=== PATIENT | male | born 1955 | race Caucasian/White ===

== ENCOUNTER 2020-12-15 10:49 | Outpatient (CLI) | payer MEDICARE, SELFPAY ==
--- NOTE | ~2020-12-15 | XR_ITS ---
EXAMINATION: XR lumbar spine 6V w bending DATE: 12/15/2020 11:19 INDICATION: Lumbar radiculopathy TECHNIQUE: Anteroposterior, lateral in neutral, flexion and extension, and bilateral oblique views of the lumbar spine, and cone-down lateral view of the lumbosacral junction were obtained. COMPARISON: 03/22/2008 FINDINGS: There is been interval revision of the lumbar posterior fusion which now extends from L4 th rough S1. An interbody device is present at L5-S1. There are 5 mm of retrolisthesis of T12 on L1 and L1 on L2. No laxity is present with flexion or extension. The vertebral body heights are maintained. There is severe loss of intervertebral disc space height at L1-2 and moderate loss of disc space heig ht at L2-3 through L4-5. There is no fracture. Moderate facet osteoarthritis is noted. IMPRESSION: 1. Moderate lumbar spondylosis without acute findings or significant interval change. Reviewed, dictated and finalized at location A.
--- NOTE | ~2020-12-15 | MR_ITS ---
EXAMINATION: MR brain/brain stem wo con DATE: 12/15/2020 12:17 INDICATION: Dementia TECHNIQUE: Magnetic resonance imaging (MRI) of the brain and brainstem was performed without intraven ous contrast. Sequences included sagittal and axial T1-weighted SE, axial diffusion-weighted FS SE, a xial T2*-weighted GRE, axial T2-weighted FLAIR Propeller, and axial T2-weighted Propeller. Apparent d iffusion coefficient (ADC) maps were created. COMPARISON: MRA brain dated 09/23/2011. FINDINGS: Normal brain parenchymal volume for age. Normal skinner-white differentiation. No evidence for acute intracranial infarction, hemorrhage, mass or mass effect. Orbits are symmetric without disconj ugate gaze. No ventriculomegaly or midline shift. Paranasal sinuses are unremarkable. Structures of t he posterior fossa including 7/8th cranial nerve complexes are normal. IMPRESSION: 1. Normal MRI of the brain for age. Reviewed, dictated and finalized at location B.
== END 2020-12-15 10:50 | disposition home or self-care (01) ==
LOC: ANHIMG 11:01
PROVIDERS: PCP Family Medicine; Visit Provider Psychiatry & Neurology Neurology
DX: F03.90 Unspecified dementia, unspecified severity, without behavioral disturbance, psychotic disturbance, mood disturbance, and anxiety (principal); M47.26 Other spondylosis with radiculopathy, lumbar region
CPT/HCPCS: 70551; 72114

== ENCOUNTER 2021-02-05 09:03 | Outpatient (CLI) | payer MEDICARE, SELFPAY ==
--- NOTE | 2021-02-05 11:00 | NEURO_ITS ---
Impression: # Complains of numbness of feet. # Normal nerve conduction study. # No Tarsal Tunnel Syndrome. # Normal needle/EMG exam. # Clinical correlation recommended. Nerve Conduction Studies Anti Sensory Summary Table Stim Site NR Peak (ms) P-T Amp (?V) Site1 Site2 Delta-P (ms) Dist (cm) Tonio (m/s) Left Sup Fibular Anti Sensory (Ant Lat Mall) 14 cm 3.6 10.5 14 cm Ant Lat Mall 3.6 16.0 44 Right Sup Fibular Anti Sensory (Ant Lat Mall) 14 cm 3.5 5.6 14 cm Ant Lat Mall 3.5 16.0 46 Left Sural Anti Sensory (Lat Mall) Calf 4.0 47.5 Calf Lat Mall 4.0 16.0 40 Right Sural Anti Sensory (Lat Mall) Calf 3.3 9.7 Calf Lat Mall 3.3 16.0 48 Motor Summary Table Stim Site NR Onset (ms) O-P Amp (mV) Site1 Site2 Delta-0 (ms) Dist (cm) Tonio (m/s) Left Lateral Plantar Motor (ADM) Med Mall 5.2 0.4 Right Lateral Plantar Motor (ADM) Med Mall 4.9 0.5 Left Peroneal Motor (Vastus Med) Ankle 4.8 4.0 Popit Ankle 10.2 44.0 43 Popit 15.0 2.9 Right Peroneal Motor (Vastus Med) Ankle 4.9 3.7 Popit Ankle 9.2 39.0 42 Popit 14.1 3.4 Left Tibial Motor Run #1 (Abd Alcantar Brev) Ankle 6.3 4.9 Knee Ankle 10.2 44.0 43 Knee 16.5 3.9 Right Tibial Motor (Abd Alcantar Brev) Ankle 4.8 8.4 Knee Ankle 10.4 46.0 44 Knee 15.2 3.8 F Wave Studies NR F-Lat (ms) L-R F-Lat (ms) Left Peroneal (Mrkrs) (EDB) 56.25 0.55 Right Peroneal (Mrkrs) (EDB) 55.70 0.55 Left Tibial (Mrkrs) (Abd Hallucis) 57.31 0.55 Right Tibial (Mrkrs) (Abd Hallucis) 56.76 0.55 EMG Side Muscle Nerve Root Ins Act Fibs Amp Dur Recrt Comment Right AntTibialis Dp Br Fibular L4-5 Nml Nml Nml Nml Nml Right Gastroc Tibial S1-2 Nml Nml Nml Nml Nml Right Fibularis Long Sup Br Fibular L5-S1 Nml Nml Nml Nml Nml Right Flex Dig Long Tibial L5-S2 Nml Nml Nml Nml Nml Right Ext Dig Brev Dp Br Fibular L5, S1 Nml Nml Nml Nml Nml Left AntTibialis Dp Br Fibular L4-5 Nml Nml Nml Nml Nml Left Gastroc Tibial S1-2 Nml Nml Nml Nml Nml Left Fibularis Long Sup Br Fibular L5-S1 Nml Nml Nml Nml Nml Left Flex Dig Long Tibial L5-S2 Nml Nml Nml Nml Nml Left Ext Dig Brev Dp Br Fibular L5, S1 Nml Nml Nml Nml Nml Right QuadratusFem QuadFemoris L4-5, S1 Nml Nml Nml Nml Nml Left QuadratusFem QuadFemoris L4-5, S1 Nml Nml Nml Nml Nml MTDD
== END 2021-02-05 09:04 | disposition home or self-care (01) ==
PROVIDERS: PCP Family Medicine; Visit Provider Psychiatry & Neurology Neurology
DX: M54.16 Radiculopathy, lumbar region (principal)
CPT/HCPCS: 95886; 95911

== ENCOUNTER 2021-04-09 10:36 | Outpatient (CLI) | payer MEDICARE, SELFPAY ==
--- NOTE | ~2021-04-09 | XR_ITS ---
XR foot RT min 3V DATE: 04/09/2021 10:54 INDICATION: Lateral right foot pain for 2 months TECHNIQUE: 4 views COMPARISON: None FINDINGS: No fracture or dislocation, periosteal reaction or bone destruction. IMPRESSION: No significant abnormality Reviewed, dictated and finalized at location B. IMPRESSION: No significant abnormality
== END 2021-04-09 10:37 | disposition home or self-care (01) ==
LOC: ANHIMG 10:39
PROVIDERS: PCP Family Medicine; Visit Provider Family Medicine
DX: M79.671 Pain in right foot (principal)
CPT/HCPCS: 73630

== ENCOUNTER → 2021-07-21 12:12 | Outpatient (CLI) | payer MEDICARE, SELFPAY ==
--- NOTE | ~2021-07-21 | MR_ITS ---
EXAMINATION: MR lumbar spine wo con DATE: 07/21/2021 12:53 INDICATION: Lumbar spine stenosis with neurogenic claudication. Low back pain. TECHNIQUE: Magnetic resonance imaging (MRI) of the lumbar spine was performed without intravenous con trast. Sequences included sagittal T2-weighted FSE, sagittal STIR FSE, sagittal T1-weighted FSE, and axial T2-weighted FSE. COMPARISON: Lumbar spine MRI 08/05/2008 FINDINGS: There is 3 mm retrolisthesis of T12 on L1, 5 mm retrolisthesis of L1 on L2, 6 mm retrolisth esis of L2 on L3 and 4 mm anterolisthesis of L4 on L5. There are changes of anterior fusion procedure at L5-S1 with interbody device. There are changes of posterior fusion procedure from L4 to S1 with p edicle screws. There is mild chronic anterior wedging of T12 and L1 vertebral bodies. There is modera tely decreased disc height at T12-L1, severely decreased disc height at L1-L2, moderately decreased d isc height at L2-L3, and mildly decreased disc height at L4-L5. The distal spinal cord signal intensi ty is normal. The conus medullaris is at L1. The following disc levels are specifically discussed: L1-L2: The disc is bulging and has an annular fissure. There is moderate bilateral facet joint osteoa rthritis. There is moderate bilateral neural foraminal stenosis. There is mild central canal stenosis . L2-L3: The disc is bulging and has an annular fissure. There is severe bilateral facet joint osteoart hritis. There is moderate bilateral neural foraminal stenosis. There is mild central canal stenosis. L3-L4: The disc is bulging. There is severe bilateral facet joint osteoarthritis. There is mild bilat eral neural foraminal stenosis. There is mild central canal stenosis. L4-L5: The disc does not extend beyond the endplate margin. There is severe bilateral facet joint hyp ertrophy. There is mild bilateral neural foraminal stenosis. There is no central canal stenosis. L5-S1: There is moderate right and mild left facet joint hypertrophy. There is mild right neural fora corrie stenosis. There is no central canal stenosis. IMPRESSION: 1. Severe lumbar spondylosis, worsened from 08/05/2008. 2. Anterior fusion procedure at L5-S1 and posterior fusion procedure from L4 to S1. Reviewed, dictated and finalized at location A. [employer]
== END ==
PROVIDERS: PCP Family Medicine; Visit Provider Family Medicine
DX: M48.061 Spinal stenosis, lumbar region without neurogenic claudication (principal); M47.896 Other spondylosis, lumbar region; Z98.1 Arthrodesis status
CPT/HCPCS: 72148

== ENCOUNTER 2022-01-14 11:16 | Outpatient (CLI) | payer MEDICARE, SELFPAY ==
--- NOTE | ~2022-01-14 | US_ITS ---
EXAMINATION: US carotid duplex BI DATE: 01/14/2022 11:46 INDICATION: Visual disturbance TECHNIQUE: Grayscale, color Doppler, and pulsed Doppler images of the cervical carotid arteries were obtained. The degree of vessel stenosis is placed in one of the following categories: normal, <50%, 5 0-69%, >=70% but less than near-occlusion, near-occlusion, or total occlusion. Note that percent sten osis relative to normal distal artery lumen diameter is indirectly measured from velocity measurement s as described by Wayne, et al. Radiology 2003; 229:340-346. Notes: Normal: Peak systolic velocity <125 centimeters/sec and no plaque <50%. Peak systolic velocity <125 ( EDV <40; ICA/CCA PSV ratio <2.0; used these factors only a tandem lesions or low cardiac output or co ntralateral disease) 50-69 %: PSV 125-230 (EDV 40-100; ratio 2-4) >= 70% but less than near occlusion: PSV greater than 230 (EDV > 100; ratio> 4.0) Near Occlusion: PSV that is variable; markedly narrowed lumen Occlusion: Absent flow on color/spectral Doppler and no lumen on skinner scale. COMPARISON: None. FINDINGS: RIGHT: The right common carotid artery (CCA) peak systolic velocity (PSV) is 105 cm/s. The right internal ca rotid artery (ICA) PSV is 53 cm/s. The right ICA end-diastolic velocity (EDV) is 16 cm/s. The right I CA/CCA PSV ratio is 0.5. The external carotid artery (ECA) PSV is 84 cm/s. There is antegrade flow in the right vertebral artery. LEFT: The left CCA PSV is 70 cm/s. The left ICA PSV is 56 cm/s. The left ICA EDV is 21 cm/s. The left ICA/C CA PSV ratio is 0.8. The ECA PSV is 80 cm/s. There is antegrade flow in the left vertebral artery. IMPRESSION: 1. Less than 50% stenosis in the right internal carotid artery by sonographic criteria. 2. Less than 50% stenosis in the left internal carotid artery by sonographic criteria. Reviewed, dictated and finalized at location A. IMPRESSION: 1. Less than 50% stenosis in the right internal carotid artery by sonographic sherrie castro. 2. Less than 50% stenosis in the left internal carotid artery by sonographic alexandro mendiola.
== END 2022-01-14 11:17 | disposition home or self-care (01) ==
PROVIDERS: PCP Family Medicine; Visit Provider Family Medicine
DX: H53.9 Unspecified visual disturbance (principal); E78.00 Pure hypercholesterolemia, unspecified; I65.23 Occlusion and stenosis of bilateral carotid arteries
CPT/HCPCS: 93880

== ENCOUNTER 2022-02-01 13:01 | Outpatient (CLI) | payer MEDICARE, SELFPAY | END 2022-02-01 13:02 | disposition home or self-care (01) | LOC: ANHAUDASC 13:03 | PROVIDERS: PCP Family Medicine; Visit Provider Family Medicine | DX: H90.3 Sensorineural hearing loss, bilateral (principal) | CPT/HCPCS: 92557; 92567 ==

== ENCOUNTER 2022-02-10 11:02 | Outpatient (CLI) | payer MEDICARE, SELFPAY ==
--- NOTE | ~2022-02-10 | US_ITS ---
US abdomen limited INDICATION: Abdominal pain PROCEDURE: Realtime right upper abdominal ultrasound. COMPARISON: No prior studies for comparison. FINDINGS: The pancreas is normal without focal mass or pancreatic ductal dilation. Liver echotexture is normal without focal mass or intrahepatic biliary dilatation. There is normal directional flow i n the portal vein. Portal vein is mildly distended measuring 13 mm. The gallbladder is normal without stones, gallbladder wall thickening or pericholecystic fluid. Comm on bile duct measures mm. No sonographic Dao's sign. IMPRESSION: 1: Unremarkable limited abdominal ultrasound. Reviewed, dictated and finalized at location B.
[2022-02-10 12:06] LABS: Basophils Percent Auto 0.4 % (0.2-1.2); Eosinophils Absolute Auto 0.1 K/mm3 (0-0.3); Eosinophils Percent Auto 1.5 % (0-4.4); Hematocrit 43.8 % (42.0-52.0); Hemoglobin 14.2 g/dL (14.0-18.0); Immature Granulocyte Absolute 0.02 K/mm3 (0.00-0.031); Immature Granulocyte Percent A 0.4 % (0-0.5); Lymphocytes Absolute Auto 1.38 K/mm3 (0.9-3.2); Lymphocytes Percent Auto 25.4 % (18.3-44.2); Mean Corpuscular HGB Conc 32.4 g/dl (32-36); Mean Corpuscular Hemoglobin 30.8 pg (26-34); Mean Platelet Volume 12.6 fl (7.4-10.4); Monocytes Absolute Auto 0.6 K/mm3 (0.1-0.6); Monocytes Percent Auto 11.2 % (2.6-8.5); Neutrophils Absolute Auto 3.3 K/mm3 (1.3-6.7); Neutrophils Percent Auto 61.1 % (45.5-73.1); Platelet Count Result 161 k/mm3 (150-375); Red Blood Count 4.61 M/mm3 (4.6-6.20); Red Cell Distribution Width 12.5 % (11.5-14.5); White Blood Count 5.4 K/mm3 (4.5-10.0)
[2022-02-10 12:19] LABS: Alanine Aminotransferase 26 U/L (6-50); Albumin Level 4.4 g/dL (3.5-5.1); Alkaline Phosphatase 86 U/L (38-126); Amylase 86 U/L (30-110); Anion Gap 5 mmol/L (8-16); Aspartate Amino Transferase 33 U/L (17-59); Bilirubin,Total 0.6 mg/dL (0.2-1.3); Blood Urea Nitrogen 10 mg/dL (9-20); Calcium 9.3 mg/dL (8.4-10.2); Carbon Dioxide 32 mmol/L (22-30); Chloride 99 mmol/L (98-107); Estimated Glomerular Filt Rate > 60; Glucose 93 mg/dL (65-110); Lipase 55 U/L (23-300); Potassium 4.2 mmol/L (3.4-5.0); Sodium 136 mmol/L (137-145)
== END 2022-02-10 11:03 | disposition home or self-care (01) ==
LOC: ANHIMG 11:13
PROVIDERS: PCP Family Medicine; Visit Provider Nurse Practitioner Family
DX: R10.9 Unspecified abdominal pain (principal); R14.0 Abdominal distension (gaseous)
CPT/HCPCS: 36415; 76705; 80053; 82150; 83690; 85025

== ENCOUNTER 2022-04-13 11:55 | Outpatient (CLI) | payer MEDICARE, SELFPAY ==
--- NOTE | ~2022-04-13 | NM_ITS ---
EXAMINATION: NM hepatobiliary wo pharm DATE: 04/14/2022 10:06 INDICATION: Abdominal pain. COMPARISON: None. TECHNIQUE: 3.9 mCi Tc-99m mebrofenin (Choletec) was administered intravenously. Scintigraphic images of the abdomen were obtained for one hour. Then, the patient drank 8 oz Ensure, and imaging was cont inued for 60 minutes. FINDINGS: There is normal clearance of radiotracer from the blood pool. There is homogeneous tracer u ptake by the liver. Activity progresses to the bowel and gallbladder. Gallbladder ejection fraction (GBEF) was 57%. Note that with this technique, normal GBEF >= 33%. IMPRESSION: 1. Normal hepatobiliary scintigraphy. Reviewed, dictated and finalized at location B.
== END 2022-04-13 11:56 | disposition home or self-care (01) ==
PROVIDERS: PCP Family Medicine; Visit Provider Internal Medicine Gastroenterology
DX: R10.9 Unspecified abdominal pain (principal)
CPT/HCPCS: 78226; A9537

== ENCOUNTER 2022-04-29 01:47 | Day surgery (SDC) | payer MEDICARE, SELFPAY ==
[2022-04-15 11:49] VITALS: BMI 27.5
--- NOTE | 2022-04-28 15:49 | PM.HPGS ---
History of Present Illness History of Present Illness Consent: Risks, benefits, and alternatives have been discussed and questions answered. Patient agrees to proceed with procedure. Chief complaint: Neoplasm Screening, Dysphagia Narrative: Marcelino Pope is a 66 year old male Who was become very uncomfortable in the upper abdomen. When he eats, he has a sensation that food either is not entering or passing through the stomach. Therefore he does not completely finish a meal. His weight has been stable. He is due for colon cancer screening. Review of Systems Review of Systems: All systems reviewed & are unremarkable except as noted in HPI and below PMFSH Past Medical History Medical History Allergy to bee sting Back pain BMI 27.0-27.9,adult BMI 28.0-28.9,adult Cervical paraspinal muscle spasm Degenerative lumbar disc Depression Hearing loss High cholesterol History of skin cancer Incontinence of feces Right foot pain Screening for prostate cancer Therapeutic opioid induced constipation Visual disturbance Surgical History Surgical History History of back surgery 2008, revision 2008 History of shoulder surgery 1985 History of sinus surgery 1992 x3 Family History Family History Father Hypertension Skin cancer Mother Skin cancer Rheumatoid arthritis Sibling Lung cancer COPD (chronic obstructive pulmonary disease) Social History Social History Smoking status: Former smoker Tobacco type: cigarettes Second hand tobacco smoke exposure: No Alcohol intake: current Substance use: current Substance use type: marijuana Other substance usage details: Medical Marijuana and edible Living arrangements: with family Additional occupation/education comments: Printing Gender identity (if verbalized by the patient): Male Meds Home Medications and Allergies Home Medications Medication Instructions Recorded Confirmed Type polyethylene glycol 3350 17 gram 17 g PO DAILY 03/11/21 04/15/22 History oral powder packet (Miralax) epinephrine 0.3 mg/0.3 mL 0.3 mg (0.3 mL) IM ONCE #4 ea 10/06/21 04/15/22 Rx injection, auto-injector (EpiPen 2-Onel) atorvastatin 20 mg tablet See Rx Instructions .Route 02/05/22 04/15/22 Rx .COMPLEX #90 tabs duloxetine 30 mg capsule,delayed 30 mg PO QHS #90 caps 03/08/22 04/15/22 Rx release oxycodone 10 mg tablet 10 mg PO Q6H PRN pain (scale score 04/10/22 04/29/22 Rx 7-10) #120 tabs cetirizine 5 mg tablet 5 mg PO DAILY PRN allergies 04/15/22 04/15/22 History lisinopril 10 mg tablet 10 mg PO DAILY #30 tabs 04/15/22 04/15/22 Rx Allergies Allergy/AdvReac Type Severity Reaction Status Date / Time bee pollen Allergy Unknown Anaphylaxis Verified 04/29/22 09:51 clarithromycin Allergy Unknown Nausea Verified 04/29/22 09:51 fluoxetine Allergy Unknown nausea Verified 04/29/22 09:51 iodine Allergy Unknown Anaphalaxis Verified 04/29/22 09:51 meperidine Allergy Unknown 1 Verified 04/29/22 09:51 shellfish derived Allergy Unknown Skin Verified 04/29/22 09:51 Reaction SHELL FISH Allergy Severe Anaphylaxis Uncoded 04/29/22 09:51 SSRI CLASS ANTIDEPRESSANTS Allergy Unknown Unknown Uncoded 04/29/22 09:51 Exam Const: General: alert Orientation/consciousness: patient oriented x3 Resp: Auscultation: clear to auscultation bilaterally Cardio: Rhythm: regular rhythm GI: GI Palp: Yes Soft to palpation and No Tenderness to palpation present (GI) Neuro: General: patient oriented x3 Assessment and Plan Assessment and plan (1) Early satiety: Code(s): R68.81 - Early satiety Status: Acute Assessment and Plan: EGD with possible biopsy or dilatation or cautery. (2) Encounter for colorectal c
[2022-04-29 09:52] VITALS: BP 140/98; PULSE 62; RESP 20; TEMP 36.1; O2SAT 99
[2022-04-29] MEDS: LACTATED RINGERS 1,000 ML 150 ML IV CONT (10:08)
[2022-04-29] MEDS: BENZOCAINE (*SP) 60 ML SPRAY CAN (HURRICAINE) 1 SPRAY MUCOUS MEM (10:43)
--- NOTE | 2022-04-29 10:46 | SUR.OPER ---
EGD: [id number] COLON: [id number]
[2022-04-29 11:13] VITALS: BP 110/75; PULSE 62; RESP 20; O2SAT 97
[2022-04-29 11:23] VITALS: BP 125/81; PULSE 55; RESP 19; O2SAT 98
[2022-04-29 11:33] VITALS: BP 130/80; PULSE 56; RESP 16; O2SAT 99
== END 2022-04-29 11:44 | disposition home or self-care (01) ==
PROVIDERS: PCP Family Medicine; Visit Provider Internal Medicine Gastroenterology
PROC: 0DJ08ZZ Inspection of Upper Intestinal Tract, Via Natural or Artificial Opening Endoscopic (ICD-10-PCS; CPT 43235; principal; 2022-04-29 11:15)
DX: Z12.11 Encounter for screening for malignant neoplasm of colon (principal); D12.5 Benign neoplasm of sigmoid colon; K57.30 Diverticulosis of large intestine without perforation or abscess without bleeding; R13.10 Dysphagia, unspecified; R68.81 Early satiety; K21.9 Gastro-esophageal reflux disease without esophagitis; Z87.891 Personal history of nicotine dependence
CPT/HCPCS: 43239; 45380; 87081; 88305; J2704; J7120

== ENCOUNTER 2022-05-25 09:12 | Outpatient (CLI) | payer MEDICARE, SELFPAY ==
--- NOTE | ~2022-05-25 | NM_ITS ---
EXAM: NM gastric emptying study DATE: 05/25/2022 14:22 INDICATION: Abdominal pain and fullness. TECHNIQUE: A gastric emptying study was performed using the methodology of [place] ADAM, et al. J Nucl Med 2007; 48:568-572. The patient was given a meal consisting of 2 scrambled eggs labeled with 1.029 mCi Tc-99m sulfur colloid, 2 slices of toast, two packages of jam, and approximately 120 mL of water . Simultaneous anterior and posterior 1-min images of the abdomen were obtained with the patient supi ne at multiple time points over a total period of 4 hours. The geometric mean of anterior and posteri or views was determined, and the percentage retention was calculated for each time point. COMPARISON: None. FINDINGS: Gastric retention of the radiotracer-labeled meal was 56%, 28%, and 6% at the 1-hour, 2-ho ur, and 4-hour time points, respectively. With this technique, apparent rapid gastric emptying is sug gested by <30% gastric retention at 1 hour. Delayed gastric emptying is defined by gastric retention of >90% at 1 hour, >60% retention at 2 hours, or >10% retention at 4 hours. IMPRESSION: 1. Normal gastric emptying. Reviewed, dictated and finalized at location A. E BENDER IMPRESSION: 1. Normal gastric emptying.
== END 2022-05-25 09:13 | disposition home or self-care (01) ==
PROVIDERS: PCP Family Medicine; Visit Provider Family Medicine
DX: R68.81 Early satiety (principal); R14.0 Abdominal distension (gaseous); R10.9 Unspecified abdominal pain
CPT/HCPCS: 78264; A9541

== ENCOUNTER 2023-02-17 10:46 | Outpatient (CLI) | payer MEDICARE, SELFPAY ==
--- NOTE | ~2023-02-17 | XR_ITS ---
EXAMINATION:XR cervical spine min 6V DATE: 02/17/2023 11:11 INDICATION: Neck pain TECHNIQUE: AP, lateral in neutral, flexion, extension, lateral swimmers and odontoid views of the cer vical spine are provided. COMPARISON: None FINDINGS: There are 3 mm of retrolisthesis of C6 on C7. There is no hypermobility with flexion or ext ension. The odontoid process is intact. No fracture is identified. The vertebral body heights are rashid ntained. There is severe loss of intervertebral disc space height at C6-7 and moderate loss of interv ertebral disc space height at C5-C6. There is multilevel severe facet and uncovertebral joint osteoar thritis. Small degenerative osteophytes project from the anterior endplates of multiple vertebral bod ies. Prevertebral soft tissues are normal. IMPRESSION: 1. Severe cervical spondylosis without acute findings. Reviewed, dictated and finalized at location A.
== END 2023-02-17 10:47 | disposition home or self-care (01) ==
PROVIDERS: PCP Family Medicine; Visit Provider Family Medicine
DX: M47.22 Other spondylosis with radiculopathy, cervical region (principal)
CPT/HCPCS: 72052

== ENCOUNTER 2023-06-07 08:24 | Outpatient (CLI) | payer MEDICARE, SELFPAY ==
--- NOTE | ~2023-06-07 | MR_ITS ---
MRI of the lumbar spine Clinical History: Right lower extremity weakness Technique: Axial T2-weighted images, and sagittal T1-weighted, T2-weighted, T2 fat-sat, and STIR imag es were acquired. Following intravenous administration of 18 cc MultiHance gadolinium, T1-weighted fa t-sat imaging was performed in the axial and sagittal planes. COMPARISON: 07/21/2021 Findings: There is posterior fusion from L4 through S1, bilateral rods and transpedicular screws pres ent. There is interbody fusion across the L5-S1 disc space. There is stable grade 1 retrolistheses of L1 over L2, and of L2 over L3. There are mild reactive marrow signal changes about the L1-L2 and L2- L3 disc spaces due to underlying degenerative disc disease. At L1-L2, there is severe degenerative disc narrowing. There is mild disc bulge with moderate to tamie re facet arthropathy. No kt central canal stenosis. There is moderate to advanced left neural fora corrie narrowing, and severe right neural foraminal narrowing. At L2-L3, there is advanced degenerative disc narrowing. There is disc bulge and severe facet arthrop athy. No central canal stenosis. There is moderate to severe bilateral neural foraminal narrowing, ri ght worse than left. At L3-L4, there is minimal disc bulge with severe facet arthropathy. No kt central canal stenosis. Bilateral neural foramina are preserved. At L4-L5, there is no kt central canal stenosis. There is mild bilateral neural foraminal narrowin g. At L5-S1, there is no central canal stenosis. Right neural foramen is probably mildly narrowed. Paravertebral soft tissues are unremarkable. No abnormal/suspicious postcontrast enhancement identifi ed. Impression: Posterior fusion from L4 through S1, with interbody fusion across the L5-S1 disc space. Stable grade 1 retrolisthesis of L1 over L2, and of L2 over L3. Moderate degenerative spondylosis in the upper lumbar spine, as detailed above. Reviewed, dictated and finalized at location M. RY WRAPPER Impression: Posterior fusion from L4 through S1, with interbody fusion across the L5-S1 dis c space. Stable grade 1 retrolisthesis of L1 over L2, and of L2 over L3. Moderate degenerative spondylosis in the upper lumbar spine, as detailed above.
== END 2023-06-07 08:25 | disposition home or self-care (01) ==
PROVIDERS: PCP Family Medicine; Visit Provider Family Medicine
DX: M43.16 Spondylolisthesis, lumbar region (principal); M43.27 Fusion of spine, lumbosacral region; M47.16 Other spondylosis with myelopathy, lumbar region
CPT/HCPCS: 72158; A9577

== ENCOUNTER 2023-07-05 13:20 | Outpatient (CLI) | payer MEDICARE, SELFPAY ==
--- NOTE | 2023-07-05 14:30 | NEURO_ITS ---
Impression: # Complains of lower back pain and numbness of lower extremities. History of several back surgeries. # Normal motor Nerve Conduction Study # Absent left sural, right superficial peroneal and bilateral saphenous sensory nerve responses; . # Normal needle/EMG exam. Nerve Conduction Studies Anti Sensory Summary Table Stim Site NR Peak (ms) P-T Amp (?V) Site1 Site2 Delta-P (ms) Dist (cm) Tonio (m/s) Left Saphenous Anti Sensory (Ant Med Mall) NO RESPONSE 14cm NR 14cm Ant Med Mall 0.0 Right Saphenous Anti Sensory (Ant Med Mall) NO RESPONSE 14cm NR 14cm Ant Med Mall 0.0 Left Sup Fibular Anti Sensory (Ant Lat Mall) 14 cm 3.6 27.3 14 cm Ant Lat Mall 3.6 16.0 44 Right Sup Fibular Anti Sensory (Ant Lat Mall) NO RESPONSE 14 cm NR 14 cm Ant Lat Mall 16.0 Left Sural Anti Sensory (Lat Mall) NO RESPONSE Calf NR Calf Lat Mall 16.0 Right Sural Anti Sensory (Lat Mall) Calf 3.3 16.1 Calf Lat Mall 3.3 16.0 48 Motor Summary Table Stim Site NR Onset (ms) O-P Amp (mV) Site1 Site2 Delta-0 (ms) Dist (cm) Tonio (m/s) Left Peroneal Motor (Vastus Med) Ankle 4.5 1.1 Popit Ankle 10.0 45.0 45 Popit 14.5 1.3 Right Peroneal Motor (Vastus Med) Ankle 3.9 4.7 Popit Ankle 9.3 44.0 47 Popit 13.2 4.4 Left Tibial Motor (Abd Alcantar Brev) Ankle 4.5 3.5 Knee Ankle 9.4 45.0 48 Knee 13.9 3.1 Right Tibial Motor (Abd Alcantar Brev) Ankle 4.6 6.8 Knee Ankle 10.7 47.0 44 Knee 15.3 3.1 F Wave Studies NR F-Lat (ms) L-R F-Lat (ms) Left Peroneal (Mrkrs) (EDB) 53.80 1.81 Right Peroneal (Mrkrs) (EDB) 51.99 1.81 Left Tibial (Mrkrs) (Abd Hallucis) 52.66 0.47 Right Tibial (Mrkrs) (Abd Hallucis) 52.20 0.47 EMG Side Muscle Nerve Root Ins Act Fibs Amp Dur Recrt Comment Right AntTibialis Dp Br Fibular L4-5 Nml Nml Nml Nml Nml Right Gastroc Tibial S1-2 Nml Nml Nml Nml Nml Right Fibularis Long Sup Br Fibular L5-S1 Nml Nml Nml Nml Nml Right Flex Dig Long Tibial L5-S2 Nml Nml Nml Nml Nml Right Ext Dig Brev Dp Br Fibular L5, S1 Nml Nml Nml Nml Nml Left AntTibialis Dp Br Fibular L4-5 Nml Nml Nml Nml Nml Left Gastroc Tibial S1-2 Nml Nml Nml Nml Nml Left Fibularis Long Sup Br Fibular L5-S1 Nml Nml Nml Nml Nml Left Flex Dig Long Tibial L5-S2 Nml Nml Nml Nml Nml Left Ext Dig Brev Dp Br Fibular L5, S1 Nml Nml Nml Nml Nml Right QuadratusFem QuadFemoris L4-5, S1 Nml Nml Nml Nml Nml Left QuadratusFem QuadFemoris L4-5, S1 Nml Nml Nml Nml Nml MTDD
== END 2023-07-05 13:21 | disposition home or self-care (01) ==
LOC: ANHNEURO 13:22
PROVIDERS: PCP Family Medicine; Visit Provider Family Medicine
DX: M47.816 Spondylosis without myelopathy or radiculopathy, lumbar region (principal)
CPT/HCPCS: 95886; 95911

== ENCOUNTER 2023-11-24 09:21 | Outpatient (CLI) | payer MEDICARE, SELFPAY ==
--- NOTE | ~2023-11-24 | CT_ITS ---
EXAMINATION: CTA chest DATE: 11/24/2023 09:56 INDICATION: Stricture of artery. TECHNIQUE: Computed tomographic angiography (CTA) of the chest was performed with 100 mL Omnipaque-35 0 intravenous contrast. Automated exposure control and iterative reconstruction technique were employ ed. The dose-length product was 614.96 mGy-cm. Maximum intensity projection 3D-reconstructions of the aorta and other arteries were constructed by the technologist on a separate workstation. COMPARISON: None. FINDINGS: The lungs demonstrate mild atelectasis. There is a small pneumatocele in left upper lobe. T here is mild scarring in paraspinal right lower lobe. No pleural effusion. There is left atrial enlar gement of the heart. There are coronary artery calcifications. No pericardial effusion. There is mild aortic atherosclerosis. There is mild stenosis of celiac axis. There is no significant stenosis of s uperior mesenteric artery or the renal arteries. There is an 11 mm cyst in left kidney. There is tamie re cervical, thoracic, and lumbar spondylosis. There is mild chronic anterior wedging of multiple aron tebral bodies. IMPRESSION: 1. No significant arterial occlusive disease. Reviewed, dictated and finalized at location A.
[2023-11-24 09:45] LABS: Estimated Glomerular Filt Rate > 60
== END 2023-11-24 09:22 | disposition home or self-care (01) ==
PROVIDERS: PCP Family Medicine; Visit Provider Nurse Practitioner Adult Health
DX: I77.1 Stricture of artery (principal)
CPT/HCPCS: 71275; Q9967

== ENCOUNTER 2024-02-01 15:49 | Emergency (ER) | payer MEDICARE, SELFPAY ==
[2024-02-01] VITALS (40 sets, daily range): BP systolic 127–150; BP diastolic 88–102; PULSE 74–108; RESP 9–28; TEMP 36.4; O2SAT 96–100
--- NOTE | ~2024-02-01 | XR_ITS ---
EXAMINATION: XR chest 1V portable DATE: 02/01/2024 16:58 INDICATION: Heart palpitations. TECHNIQUE: A single frontal view of the chest was obtained. COMPARISON: Chest single view 09/28/2010, chest CT 11/24/2023 FINDINGS: There is mild atelectasis at left lung base. No pleural effusion or pneumothorax. The heart size is normal. IMPRESSION: 1. Mild atelectasis at left lung base. Reviewed, dictated and finalized at location A.
--- NOTE | 2024-02-01 15:50 | ECG_ITS ---
Test Date: 2024-02-01 15:55:32 Measurements Intervals [place] Rate: 70 P: 0 CT: 0 QRS: -20 QRSD: 119 T: 26 QT: 412 QTc: 446 Interpretive Statements ATRIAL FIBRILLATION No previous ECG available for comparison Electronically Signed On 02-01-2024 17:16:37 CDT by Aurora Acuna M.D.
[2024-02-01 17:20] LABS: Basophils Percent Auto 0.5 % (0.2-1.2); Eosinophils Absolute Auto 0.1 K/mm3 (0-0.3); Eosinophils Percent Auto 1.3 % (0-4.4); Hematocrit 42.4 % (42.0-52.0); Hemoglobin 14.3 g/dL (14.0-18.0); Immature Granulocyte Absolute 0.03 K/mm3 (0.00-0.031); Immature Granulocyte Percent A 0.5 % (0-0.5); Immature Platelet Fraction Pct 17.5 % (0.9-11.2); Lymphocytes Absolute Auto 1.11 K/mm3 (0.9-3.2); Lymphocytes Percent Auto 17.4 % (18.3-44.2); Mean Corpuscular HGB Conc 33.7 g/dl (32-36); Mean Corpuscular Hemoglobin 31.6 pg (26-34); Mean Corpuscular Volume 93.6 fl (80-100); Mean Platelet Volume 13.2 fl (7.4-10.4); Monocytes Absolute Auto 0.7 K/mm3 (0.1-0.6); Monocytes Percent Auto 11.6 % (2.6-8.5); Neutrophils Absolute Auto 4.4 K/mm3 (1.3-6.7); Neutrophils Percent Auto 68.7 % (45.5-73.1); Platelet Count Result 169 k/mm3 (150-375); Red Blood Count 4.53 M/mm3 (4.6-6.20); Red Cell Distribution Width 12.2 % (11.5-14.5); White Blood Count 6.4 K/mm3 (4.5-10.0)
--- NOTE | 2024-02-01 17:28 | ED.ARRPALP ---
HPI - Arrhythmia/Palpitations General Chief Complaint: Arrhythmia/Palpitations Stated Complaint: sent by PCP for a-fib Time Seen by Provider: 02/01/24 16:41 History of Present Illness HPI narrative: 68-year-old male present to the emergency department from the primary care physician for evaluation for acute onset of nausea. Patient does have chronic AFib since approximately mid December. On January 10 patient was at [facility] and was cardioverted. Patient does take amiodarone. Patient states shortly after being cardioverted he did return back to AFib and has been in AFib since approximately mid December. Patient was having follow-up with his primary care physician when at the office he had onset of lightheaded dizziness and nausea without vomiting. Patient was also complaining of some intermittent posterior left shoulder pain and primary care physician was concerned so he was referred to the emergency department. Upon arrival emergency department patient states that he does not have any current back pain. Patient states previously the back pain has radiated into his left neck but is not currently. Patient states that his nausea is improved and declines any medication for nausea control. Related Data Home Medications Medication Instructions Recorded Confirmed polyethylene glycol 3350 17 gram 17 g PO DAILY 03/11/21 01/11/24 oral powder packet (Miralax) cetirizine 5 mg tablet 5 mg PO DAILY PRN allergies 04/15/22 01/11/24 amoxicillin 500 mg capsule 500 mg PO Q6H 01/11/24 01/11/24 apixaban 5 mg tablet (Eliquis) 5 mg PO BID 01/18/24 spironolactone 25 mg tablet 25 mg PO DAILY 01/18/24 (Aldactone) amiodarone 400 mg tablet 200 mg PO BID 02/01/24 metoprolol succinate 50 mg 50 mg PO BID 02/01/24 tablet,extended release 24 hr Allergies Allergy/AdvReac Type Severity Reaction Status Date / Time clarithromycin Allergy Unknown Nausea Verified 02/01/24 15:50 iodine Allergy Unknown Anaphalaxis Verified 02/01/24 15:50 meperidine Allergy Unknown 1 Verified 02/01/24 15:50 shellfish derived Allergy Unknown Skin Verified 02/01/24 15:50 Reaction bee venom protein (honey bee) AdvReac Severe Anaphylactic Verified 02/01/24 15:50 Shock fluoxetine AdvReac Unknown nausea Verified 02/01/24 15:50 Review of Systems Review of Systems: All systems reviewed & are unremarkable except as noted in HPI and below PMFSH Past Medical History Medical History (Updated 02/02/24 @ 00:01 by Andrew Patton) Acute pain of left shoulder Allergy to bee sting Atrial fibrillation with RVR Back pain Bronchitis Cervical paraspinal muscle spasm Cervical spine degeneration Decreased libido Degenerative lumbar disc Depression Dysphagia Hamstring tightness of both lower extremities Hearing loss High cholesterol History of skin cancer Hypertension Incontinence of feces Lumbar spondylosis with myelopathy New onset a-fib Nonerosive esophageal reflux disease Post-COVID chronic fatigue Right foot pain Right leg weakness Screening for prostate cancer Sinusitis, acute Therapeutic opioid induced constipation Tortuous aorta Urinary bladder incontinence Visual disturbance Surgical History Surgical History History of back surgery 2007, revision 2009 History of shoulder surgery 1985 History of sinus surgery 1992 x3 Family History Family History Father Hypertension Skin cancer Mother Skin cancer Rheumatoid arthritis Sibling Lung cancer COPD (chronic obstructive pulmonary disease) Social History Social History Smoking status: Former smoker Tobacco type: cigarettes Second hand tobacco smoke exposure: Yes Alcohol intake: current Substance use: current Substance use type: marijuana Other substance usage details: Medical Marijuana and larissa
[2024-02-01 17:37] LABS: INR 1.1; Prothrombin Time 14.1 Seconds (11.1-14.7)
[2024-02-01 17:38] LABS: Partial Thromboplastin Time 30.1 Seconds (22.3-36.8)
[2024-02-01 17:54] LABS: Alanine Aminotransferase 24 U/L (6-50); Alkaline Phosphatase 89 U/L (38-126); Anion Gap 9 mmol/L (4-12); Aspartate Amino Transferase 29 U/L (17-59); Bilirubin,Total 0.5 mg/dL (0.2-1.3); Blood Urea Nitrogen 18 mg/dL (9-20); Calcium 8.6 mg/dL (8.4-10.2); Carbon Dioxide 26 mmol/L (22-30); Chloride 97 mmol/L (98-107); Estimated CRCL calculation 69 ml/min; Estimated Glomerular Filt Rate > 60; Glucose 101 mg/dL (65-110); Magnesium 2.3 mg/dL (1.6-2.3); Potassium 4.4 mmol/L (3.4-5.0); Sodium 132 mmol/L (137-145)
[2024-02-01 18:04] LABS: Troponin I < 0.012 ng/mL (0.000-0.034)
[2024-02-01 18:50] LABS: D Dimer 0.39 ug/mL (<0.48)
[2024-02-01 18:52] LABS: Free T4 Free Thyroxine Reflex 1.18 ng/dL (0.78-2.19)
[2024-02-01 19:15] LABS: Influenza A QL RT-PCR Negative (Negative); Influenza B QL RT-PCR Negative (Negative); RSV RNA, RT-PCR Negative (Negative); SARS-CoV-2 RNA PCR Negative (Negative)
[2024-02-01 19:58] LABS: Total Triiodothyronine (T3) 1.01 NG/ML (0.97-1.69)
--- NOTE | 2024-02-01 20:20 | ECG_ITS ---
Test Date: 2024-02-01 20:20:41 Measurements Intervals [place] Rate: 77 P: 0 IL: 0 QRS: 0 QRSD: 141 T: 32 QT: 429 QTc: 487 Interpretive Statements ATRIAL FIBRILLATION RIGHT BUNDLE BRANCH BLOCK [120+ ms QRS DURATION, UPRIGHT V1, 40+ ms S IN I/aVL/V4/V5/V6] ABNORMAL ECG Compared to ECG 02/01/2024 15:55:32 NO DIFFERENCE Electronically Signed On 02-03-2024 13:21:01 CDT by William Adams M.D.
[2024-02-01 20:55] LABS: Troponin I < 0.012 ng/mL (0.000-0.034)
== END 2024-02-01 22:37 | disposition home or self-care (01) ==
PROVIDERS: Emergency Provider Emergency Medicine; PCP Family Medicine
DX: R00.2 Palpitations (principal); M54.9 Dorsalgia, unspecified; I48.20 Chronic atrial fibrillation, unspecified; I10 Essential (primary) hypertension; E78.00 Pure hypercholesterolemia, unspecified; R32 Unspecified urinary incontinence; G93.32 Myalgic encephalomyelitis/chronic fatigue syndrome; U09.9 Post COVID-19 condition, unspecified; Z85.828 Personal history of other malignant neoplasm of skin; Z87.891 Personal history of nicotine dependence; Z79.01 Long term (current) use of anticoagulants; Z79.899 Other long term (current) drug therapy; I45.10 Unspecified right bundle-branch block
CPT/HCPCS: 36415; 71045; 80053; 83735; 84439; 84443; 84480; 84484; 85025; 85055; 85380; 85610; 85730; 87637; 93005; 99284